=== PATIENT | female | born 1985 | race Caucasian/White ===

== ENCOUNTER 2024-05-09 18:36 | Emergency (ER) | payer MEDICAID, SELFPAY ==
[2024-05-09 18:37] VITALS: BP 170/109; PULSE 76; RESP 18; TEMP 37.1; O2SAT 100; BMI 30.1
--- NOTE | 2024-05-09 18:59 | ED_ITS ---
Discharge Plan Disposition Patient Disposition: Home, Self-Care Condition: Good Prescriptions Prescriptions: New clindamycin HCl 300 mg capsule 300 mg PO TID Qty: 30 0RF Referrals Follow up/Referrals: Provider,Referral, MD [Primary Care Provider] - See instructions Activity Restrictions/Add. Instructions Additional Instructions/Restrictions: Follow-up with dentist as scheduled If symptoms worsen or do not improve return Antibiotics as ordered Take blood pressure medicine as soon as it is available Tylenol or Motrin as needed for pain Clinical Impressions Clinical Impression: Dental caries, Dental abscess Instructions Patient Instructions: Tooth Abscess, DI for Dental Pain Print Language Print Language: Swedish Discharge ED Provider: Ivania Flowers General Adult HPI <Leobardo De Los Santos ([facility]), MANAGER REGISTRATION - Last Filed: 05/09/24 19:14> General Chief complaint: Dental/Oral Stated complaint: tooth pain Time Seen by Provider: 05/09/24 18:53 Mode of Arrival: Ambulatory Source of Information: Patient Limitations: No Limitations Description of Symptoms (Recalled from ER Triage Doc. by RN): pt says she has an abscess tooth and unable to get into the dentist office, pain and swelling to the left side of face. History of Present Illness HPI narrative: 38-year-old female presents for an abscessed tooth on upper left side with facial swelling for 2 days. Patient states she has multiple dental caries and she does have a dentist appointment May 20 but the pain has worsened so she decided to come to the ER. Patient states she also forgot to take her blood pressure pill. Related Data Previous Rx's ?Medication ?Instructions ?Recorded clindamycin HCl 300 mg capsule 300 mg PO TID #30 caps 05/09/24 Allergies Allergy/AdvReac Type Severity Reaction Status Date / Time No Known Allergies Allergy Verified 05/09/24 19:10 PFS <[facility] MANAGER REGISTRATION - Last Filed: 05/09/24 19:14> [facility] Disclaimer: The information contained in this section may have been updated after the patient was seen, as this information can be updated by other users. Social History (Updated 05/09/24 @ 19:14 by Leobardo ThorneZ[facility] MANAGER REGISTRATION) Smoking Status: Current every day smoker alcohol intake: never current occupational status: employed Travel in the last 8 weeks: None <Leobardo De Los Santos ([facility]), MANAGER REGISTRATION - Last Filed: 05/09/24 19:14> ROS Obtained: Yes Systems reviewed as appropriate & no additional complaints except as documented ENT Ears, Nose, Mouth, and Throat: Reports system reviewed and no additional complaints, except as documented, Reports as per HPI, Reports dental pain and Reports facial pain Physical Exam <Leobardo De Los Santos ([facility]), MANAGER REGISTRATION - Last Filed: 05/09/24 19:14> General General appearance: alert and in no apparent distress Expanded Head Exam Head image: 2 1. Swelling Eye Eye exam: Present normal appearance ENT ENT exam: Present mucous membranes moist Expanded ENT Exam Teeth numbered Image: 2 1. Other (Dental caries) 2. Other (Dental caries) 3. Other (Dental caries) 4. Other (Dental caries) 5. Other (Dental caries) 6. Other (Dental caries) 7. Other (Dental caries) 8. Other (Dental caries) 9. Other (Dental caries) 10. Other (Dental caries) 11. Other 12. 13. 14. 15. Respiratory Respiratory exam: Present normal lung sounds bilaterally Cardiovascular Cardiovascular exam: Present regular rate and normal rhythm Neurological Exam Neurological exam: Present alert and oriented X3 Skin Skin exam: Present warm Medical Decision Making <Leobardo Villagomezskyler ([facility]), MANAGER REGISTRATION - Last Filed: 05/09/24 19:14> Medical Records Medical records reviewed: Yes I reviewed the patient's medical records. Screening: Per USPSTF and CDC recommendations, given the prevalence of disease in our region, it is our hospital?s policy to screen for HIV and viral Hepatitis for all patients aged 18 and over and those with ongoing risk factors. Griffin Inquiry Pt receiving controlled substance: No Griffin was queried for this patient: No Vital Signs: 05/09/24 18:37 05/09/24 19:25 Temperature 98.7 F 98.2 F Temperature Source Oral Pulse Rate 70 Pulse Rate [Left Radial] 76 Respiratory Rate 18 20 Blood Pressure 183/109 H Blood Pressure [Right Arm] 170/109 H Blood Pressure Mean [Right Arm] 129 02 Sat by Pulse Oximetry 100 Oxygen Delivery Method Room Air Room Air Orders (Tests/Meds): ED MEDICATIONS Discontinued Medications Generic Name Dose Route Start Last Admin Trade Name Freq PRN Reason Stop Dose Admin Hydrocodone Bitart/Acetaminophen 1 tab 05/09/24 19:00 05/09/24 19:15 Hydrocodone/Apap 5/325 Mg Tablet PO 05/09/24 19:01 1 tab ONCE ONE Administration Ceftriaxone Sodium 1 gm 05/09/24 19:00 05/09/24 19:14 Ceftriaxone 1gm Vial IM 05/09/24 19:01 1 gm ONCE ONE Administration Lidocaine HCl 0 ml 05/09/24 19:00 05/09/24 19:15 Lidocaine 1% 5ml Pf Vial IM 05/09/24 19:01 2.1 ml ONCE ONE Administration Medical Decision Narrative: In summary patient is a 38-year-old female who presents to the emergency department for evaluation of dental pain and facial swelling. Patient states pain is 9 out of 10. Patient is hemodynamically stable upon arrival, afebrile. Facial swelling and multiple dental caries. Differential diagnosis includes abscess, dental caries. Initial inventions include Rocephin injection and [place] 5. Upon repeat evaluation pain is improved. Given this was appropriate discharge at this time will discharge home with clindamycin 303 times a day and instructed to follow-up with PCP and dentist as scheduled <Ivania Flowers MD - Last Filed: 05/09/24 20:04> Vital Signs: 05/09/24 18:37 05/09/24 19:25 Temperature 98.7 F 98.2 F Temperature Source Oral Pulse Rate 70 Pulse Rate [Left Radial] 76 Respiratory Rate 18 20 Blood Pressure 183/109 H Blood Pressure [Right Arm] 170/109 H Blood Pressure Mean [Right Arm] 129 02 Sat by Pulse Oximetry 100 Oxygen Delivery Method Room Air Room Air Orders (Tests/Meds): ED MEDICATIONS Discontinued Medications Generic Name Dose Route Start Last Admin Trade Name Freq PRN Reason Stop Dose Admin Hydrocodone Bitart/Acetaminophen 1 tab 05/09/24 19:00 05/09/24 19:15 Hydrocodone/Apap 5/325 Mg Tablet PO 05/09/24 19:01 1 tab ONCE ONE Administration Ceftriaxone Sodium 1 gm 05/09/24 19:00 05/09/24 19:14 Ceftriaxone 1gm Vial IM 05/09/24 19:01 1 gm ONCE ONE Administration Lidocaine HCl 0 ml 05/09/24 19:00 05/09/24 19:15 Lidocaine 1% 5ml Pf Vial IM 05/09/24 19:01 2.1 ml ONCE ONE Administration Medical Decision Narrative: In summary patient is a 38-year-old female who presents to the emergency department for evaluation of dental pain and facial swelling. Patient states pain is 9 out of 10. Patient is hemodynamically stable upon arrival, afebrile. Facial swelling and multiple dental caries. Differential diagnosis includes abscess, dental caries. Initial inventions include Rocephin injection and [place] 5. Upon repeat evaluation pain is improved. Given this was appropriate discharge at this time will discharge home with clindamycin 303 times a day and instructed to follow-up with PCP and dentist as scheduled I was consulted by the [facility], and we discussed the complexity of the problems being addressed. I approved the treatment and management plan for this patient's care in the Emergency Department, thus performing a substantive portion of the medical decision making. Ivania Flowers MD Critical Care <Leobardo De Los Santos ([facility]), MANAGER REGISTRATION - Last Filed: 05/09/24 19:14> Critical Care Time Critical Care Time: No
[2024-05-09] MEDS: cefTRIAXone 1GM VIAL 1 GM IM (19:14)
[2024-05-09] MEDS: HYDROCODONE/APAP 5/325 MG TABLET 1 TAB PO (19:15)
[2024-05-09] MEDS: LIDOCAINE 1% 5ML PF VIAL IM (19:15)
[2024-05-09 19:25] VITALS: BP 183/109; PULSE 70; RESP 20; TEMP 36.8; O2SAT 100
== END 2024-05-09 19:30 | disposition home or self-care (01) ==
PROVIDERS: Emergency Provider Emergency Medicine
DX: K04.7 Periapical abscess without sinus (principal); K02.9 Dental caries, unspecified; K08.89 Other specified disorders of teeth and supporting structures; R22.0 Localized swelling, mass and lump, head
CPT/HCPCS: 96372; 99282; J0696

== ENCOUNTER 2024-07-02 13:17 | Emergency (ER) | payer SELFPAY ==
[2024-07-02 13:18] VITALS: BP 170/104; PULSE 75; RESP 20; TEMP 36.9; O2SAT 98; BMI 30.1
--- NOTE | 2024-07-02 13:58 | ED_ITS ---
<Statement entered by Janny Greenberg DO - 07/02/24 16:08> I was consulted by the [facility], and we discussed the complexity of the problems being addressed. I approved the treatment and management plan for this patient's care in the emergency department, thus performing a substantive portion of the medical decision making. Janny Greenberg DO Discharge Plan Disposition Patient Disposition: Home, Self-Care Condition: Good Prescriptions Prescriptions: New meclizine 25 mg tablet 25 mg PO DAILY Qty: 30 0RF hydrochlorothiazide 25 mg tablet 25 mg PO DAILY Qty: 60 0RF No Action clindamycin HCl 300 mg capsule 300 mg PO TID Qty: 30 0RF Referrals Follow up/Referrals: Provider,Referral, MD [Primary Care Provider] - See instructions Activity Restrictions/Add. Instructions Additional Instructions/Restrictions: Please take meclizine p.o. as needed for dizziness, please take your blood pressure medicine as prescribed, follow-up with primary care provider return to the emergency department any worsening signs or symptoms. Clinical Impressions Clinical Impression: Dizziness, Nausea Instructions Patient Instructions: Vertigo Print Language Print Language: Korean Discharge ED Provider: Janny Greenberg General Adult HPI <ZULY Espinosa - Last Filed: 07/02/24 15:15> General Chief complaint: Dizziness Stated complaint: dizzy, nausea Time Seen by Provider: 07/02/24 13:54 Mode of Arrival: Ambulatory Source of Information: Patient Limitations: No Limitations Description of Symptoms (Recalled from ER Triage Doc. by RN): pt states she is dizzy and nausea for 3 days and has been without bp meds for two weeks due to insurance issues History of Present Illness HPI narrative: 39-year-old female presents emergency department for dizziness and nausea with 1 episode of vomiting yesterday this been going on for 3 days she has had similar episode in the past, that resolved on its own, patient dates the dizziness waxes wanes, no position makes it better or worse. Patient denies any fever chills chest pain shortness of breath abdominal pain urinary type symptomatology, no neck pain, headache, no upper or lower extremity weakness, no numbness or tingling, no constipation, she did have diarrhea for the last couple of days, endorses cough and congestion, no recent sick contacts, no real fever or chills. He is a current everyday smoker she denies any alcohol or drug use. She has other past medical history consistent with hypertension, GERD and bipolar 1 disorder. She has been without her blood pressure medicines for over 2 weeks due to insurance issues , she is unsure of what her blood pressure medication that she is prescribed is. Initial triage vitals noted for blood pressure at 170 systolic otherwise grossly unremarkable Onset (ago): day(s) Related Data Previous Rx's ?Medication ?Instructions ?Recorded clindamycin HCl 300 mg capsule 300 mg PO TID #30 caps 05/09/24 hydrochlorothiazide 25 mg tablet 25 mg PO DAILY #60 tabs 07/02/24 meclizine 25 mg tablet 25 mg PO DAILY #30 tabs 07/02/24 Allergies Allergy/AdvReac Type Severity Reaction Status Date / Time No Known Allergies Allergy Verified 05/09/24 19:10 [facility] <ZULY Espinosa - Last Filed: 07/02/24 15:15> [facility] Disclaimer: The information contained in this section may have been updated after the patient was seen, as this information can be updated by other users. Social History (Updated 05/09/24 @ 19:14 by Leobardo De Los Santos ([facility]), INSPECTOR RECEIVING) Smoking Status: Never smoker alcohol intake: never current occupational status: employed Travel in the last 8 weeks: None Have you lived/traveled outside [place] in past 30 days?: No Contact w/someone who lives/traveled outside US past 30 days?: No Exposure to someone with infectious disease in past 14 days?: No Do you have a fever (greater than 100.4 F or 38 C)?: No Have you tested positive for COVID-19: No Exposed to someone with COVID-19 in past 14 days?: No Do you have a sore throat?: No Do you have a cough?: No Do you have any weakness?: No Do you have any diarrhea?: No Are you experiencing any unusual bleeding?: No Do you have any muscle aches/pain?: No Do you have any abdominal pain?: No Are you experiencing loss of taste or smell?: No <ZULY Espinosa - Last Filed: 07/02/24 15:15> ROS Obtained: Yes All systems reviewed & no additional complaints except as documented Physical Exam <ZULY Espinosa - Last Filed: 07/02/24 15:15> General General appearance: alert and in no apparent distress Head Head exam: atraumatic, normocephalic and other (No vertical or horizontal nystagmus noted negative [id number] test, no visual disturbance, visual acuity intact) Eye Eye exam: Present PERRL and EOMI ENT ENT exam: Present mucous membranes moist Neck Neck exam: Present normal inspection Chest Chest inspection: Present normal inspection and symmetric chest wall rise Respiratory Respiratory exam: Present normal lung sounds bilaterally; Absent respiratory distress, wheezes, stridor or accessory muscle use Cardiovascular Cardiovascular exam: Present regular rate and normal rhythm Abdominal Exam Abdominal exam: Present soft; Absent tenderness, guarding, rebound or rigidity Extremities Exam Extremities exam: Present normal inspection Neurological Exam Neurological exam: Present alert, oriented X3 and other (Patient has 5 out of 5 strength in the bilateral lower and upper extremities, no gross sensation deficit, no dysmetria, negative Romberg sign no ataxia no limb drift in the bilateral upper and lower extremity) Psychiatric Psychiatric exam: Present normal affect Skin Skin exam: Present warm and dry Medical Decision Making <ZULY Espionsa - Last Filed: 07/02/24 15:15> Medical Records Medical records reviewed: Yes I reviewed the patient's medical records. Screening: Per USPSTF and CDC recommendations, given the prevalence of disease in our region, it is our hospital?s policy to screen for HIV and viral Hepatitis for all patients aged 18 and over and those with ongoing risk factors. Griffin Inquiry Pt receiving controlled substance: No Griffin was queried for this patient: No Vital Signs: 07/02/24 13:18 Temperature 98.5 F Temperature Source Oral Pulse Rate [Left Radial] 75 Respiratory Rate 20 Blood Pressure [Right Arm] 170/104 H Blood Pressure Mean [Right Arm] 126 02 Sat by Pulse Oximetry 98 Oxygen Delivery Method Room Air Lab Data Lab results reviewed: Yes I reviewed the patient's lab results. Lab Results 07/02/24 14:10: Urine Color Yellow, Urine Appearance Slightly cloudy, Urine pH 7.0, Ur Specific [place] 1.010, Urine Protein Negative, Urine Glucose (UA) Negative, Urine Ketones Negative, Urine Blood Negative, Urine Nitrate Negative, Urine Bilirubin Negative, Urine Urobilinogen 0.2, Ur Leukocyte Esterase Negative, SARS-CoV-2 (PCR) Not detected, Influenza A Untype (PCR) Not detected, Influenza Type B (PCR) Not detected 07/02/24 14:44: WBC 9.6, RBC 4.25, Hgb 11.6 L, Hct 35.6 L, MCV 83.8, MCH 27.3, MCHC 32.6, RDW 14.8, Plt Count 304, MPV 9.3, Neut % (Auto) 60.2, Lymph % (Auto) 30.1, [place] % (Auto) 8.0, Eos % (Auto) 0.9, Baso % (Auto) 0.6, Neut # (Auto) 5.8, Lymph # (Auto) 2.9, [place] # (Auto) 0.8, Eos # (Auto) 0.1, Baso # (Auto) 0.1, S odium 134 L, Potassium 3.5, Chloride 107, Carbon Dioxide 24, Anion Gap 6.5, BUN 12, Creatinine 0.80, Estimated Creat Clear 117, Estimated GFR 81, Est GFR ( Amer) 98, Glucose 91, Calcium 8.6, Magnesium 1.8, Total Bilirubin 0.5, AST 31, ALT 21, Alkaline Phosphatase 88, Troponin I < 0.01, Total Protein 7.0, Albumin 4.1, Globulin 2.9, Albumin/Globulin Ratio 1.4, Lipase 162 07/02/24 14:44 07/02/24 14:44 Orders (Tests/Meds): ED MEDICATIONS Discontinued Medications Generic Name Dose Route Start Last Admin Trade Name Freq PRN Reason Stop Dose Admin Meclizine HCl 25 mg 07/02/24 13:57 07/02/24 14:13 Meclizine 25mg Tablet PO 07/02/24 13:58 25 mg ONCE ONE Administration ORDERS Category Date Time Status Complete Blood Count Auto Diff Stat Lab 07/02/24 14:44 Completed Comprehensive Metabolic Panel Stat Lab 07/02/24 14:44 Completed Lipase Stat Lab 07/02/24 14:44 Completed Magnesium Stat Lab 07/02/24 14:44 Completed Rapid PCR Covid and Flu A/B Stat Lab 07/02/24 14:10 Completed Troponin I Q3H Lab 07/02/24 17:00 Ordered Troponin I Q3H Lab 07/02/24 20:00 Ordered Troponin I Stat Lab 07/02/24 14:44 Completed Urinalysis and Microscopic Stat Lab 07/02/24 14:10 Results Urine , HCG Qual. Stat Lab 07/02/24 13:56 Ordered Medical Decision Narrative: 39-year-old female presents emerged part with dizziness and nausea, for 3 days, differential diagnose include but not limited to, peripheral vertigo central vertigo, cardiac arrhythmia, electrolyte disturbance, hypertensive urgency, hypertensive emergency, acute URI. I discussed patient case with attending physician Obtain basic laboratory studies magnesium level lipase level rapid PCR for COVID and flu, troponin urinalysis EKG. Will give 25 mg p.o. meclizine for dizziness. Urinalysis unremarkable. COVID-19 and influenza AMB are unremarkable CBC is unremarkable. CMP is notable for minimal hyponatremia 134 Troponin is negative. Reexamination of the patient at 3:10 PM, patient is feeling better and dizziness is improved with meclizine, will send patient p.o. meclizine to her pharmacy, patient will follow with PCP as directed, strict ED return precaution given, patient voiced understand agree with current treatment plan/discharge plan. Most likely vertigo in nature the patient symptomatology and improvement with meclizine, will also prescribe patient 25 mg HCTZ p.o. which is her at home blood pressure medication. Patient voiced understanding with current treatment plan/discharge plan. <Janny Greenberg, DO - Last Filed: 07/02/24 14:30> Vital Signs: 07/02/24 13:18 Temperature 98.5 F Temperature Source Oral Pulse Rate [Left Radial] 75 Respiratory Rate 20 Blood Pressure [Right Arm] 170/104 H Blood Pressure Mean [Right Arm] 126 02 Sat by Pulse Oximetry 98 Oxygen Delivery Method Room Air Lab Data Lab Results 07/02/24 14:10: Urine Color Yellow, Urine Appearance Slightly cloudy, Urine pH 7.0, Ur Specific [place] 1.010, Urine Protein Negative, Urine Glucose (UA) Negative, Urine Ketones Negative, Urine Blood Negative, Urine Nitrate Negative, Urine Bilirubin Negative, Urine Urobilinogen 0.2, Ur Leukocyte Esterase Negative, SARS-CoV-2 (PCR) Not detected, Influenza A Untype (PCR) Not detected, Influenza Type B (PCR) Not detected 07/02/24 14:44: WBC 9.6, RBC 4.25, Hgb 11.6 L, Hct 35.6 L, MCV 83.8, MCH 27.3, MCHC 32.6, RDW 14.8, Plt Count 304, MPV 9.3, Neut % (Auto) 60.2, Lymph % (Auto) 30.1, [place] % (Auto) 8.0, Eos % (Auto) 0.9, Baso % (Auto) 0.6, Neut # (Auto) 5.8, Lymph # (Auto) 2.9, [place] # (Auto) 0.8, Eos # (Auto) 0.1, Baso # (Auto) 0.1, S odium 134 L, Potassium 3.5, Chloride 107, Carbon Dioxide 24, Anion Gap 6.5, BUN 12, Creatinine 0.80, Estimated Creat Clear 117, Estimated GFR 81, Est GFR ( Amer) 98, Glucose 91, Calcium 8.6, Magnesium 1.8, Total Bilirubin 0.5, AST 31, ALT 21, Alkaline Phosphatase 88, Troponin I < 0.01, Total Protein 7.0, Albumin 4.1, Globulin 2.9, Albumin/Globulin Ratio 1.4, Lipase 162 Orders (Tests/Meds): ED MEDICATIONS Discontinued Medications Generic Name Dose Route Start Last Admin Trade Name Freq PRN Reason Stop Dose Admin Meclizine HCl 25 mg 07/02/24 13:57 07/02/24 14:13 Meclizine 25mg Tablet PO 07/02/24 13:58 25 mg ONCE ONE Administration ORDERS Category Date Time Status Complete Blood Count Auto Diff Stat Lab 07/02/24 14:44 Completed Comprehensive Metabolic Panel Stat Lab 07/02/24 14:44 Completed Lipase Stat Lab 07/02/24 14:44 Completed Magnesium Stat Lab 07/02/24 14:44 Completed Rapid PCR Covid and Flu A/B Stat Lab 07/02/24 14:10 Completed Troponin I Q3H Lab 07/02/24 17:00 Ordered Troponin I Q3H Lab 07/02/24 20:00 Ordered Troponin I Stat Lab 07/02/24 14:44 Completed Urinalysis and Microscopic Stat Lab 07/02/24 14:10 Results Urine , HCG Qual. Stat Lab 07/02/24 13:56 Ordered ECG Data Tracing #1: I reviewed this ECG and interpreted as documented below: Normal sinus rhythm with a ventricular rate of [address] changes concerning for ischemia. Normal intervals. ECG initial impression date: 07/02/24 ECG initial impression time: 14:29 Critical Care <ZULY Espinosa - Last Filed: 07/02/24 15:15> Critical Care Time Critical Care Time: No
--- NOTE | 2024-07-02 14:08 | ECG_ITS ---
APPROVED REPORT Exam: Resting ECG HR:73 bpm ECG Measurements Heart Rate 73 AXES DE 131 P 49 QRSd 88 QRS 39 QT 393 T 54 QTc 419 Conclusion SINUS RHYTHM NONSPECIFIC T-WAVE ABNORMALITY Electronically signed by : LONNY ALANIZ, 07/02/2024 16:47:27
[2024-07-02] MEDS: MECLIZINE 25MG TABLET 25 MG PO (14:13)
[2024-07-02 14:15] LABS: Coronavirus 19, PCR Not Detected (NotDetected); Influenza A, PCR Not Detected (NotDetected); Influenza B, PCR Not Detected (NotDetected)
[2024-07-02 14:17] LABS: Microscopic, Urine URINE MICROSCOPIC (MICROSCOPIC)
[2024-07-02 14:26] LABS: Bilirubin,Urine Negative (Negative); Blood, Urine Negative (Negative); Color,Urine YELLOW (Yellow); Glucose,Urine (UA) Negative (Negative); Ketones,Urine Negative (Negative); Leukocyte Esterase,Urine Negative (Negative); Nitrate,Urine Negative (Negative); Protein,Urine Negative (Negative); Urobilinogen,Urine 0.2 EU/dl (0.2)
[2024-07-02 14:27] LABS: Appearance,Urine Slightly Cloudy (Clear)
[2024-07-02 14:54] LABS: Albumin Level 4.1 g/dl (3.5-5.0); Chloride 107 mmol/L (98-107); Hematocrit 35.6 % (37.0-47.0); Hemoglobin 11.6 g/dL (12.2-16.2); Mean Corpuscular Volume 83.8 fl (81-99); Red Blood Count 4.25 M/mm3 (4.20-5.40); Sodium 134 mmol/L (136-145); White Blood Count 9.6 K/mm3 (4.8-10.8)
[2024-07-02 14:55] LABS: Basophils # 0.1 K/mm3 (0-0.2); Basophils % 0.6 % (0.1-2.0); Eosinophils # 0.1 K/mm3 (0.0-0.4); Eosinophils % 0.9 % (0.1-12.0); Lymphocytes # 2.9 K/mm3 (0.7-4.5); Lymphocytes % 30.1 % (10-50); Mean Corpuscular HGB Conc 32.6 g/dL (31.8-35.4); Mean Corpuscular Hemoglobin 27.3 pg (27.0-31.2); Mean Platelet Volume 9.3 fl (7.4-10.4); Monocytes # 0.8 K/mm3 (0.1-1.0); Neutrophils # 5.8 K/mm3 (1.8-7.8); Neutrophils % 60.2 % (37.0-80.0); Platelet Count 304 K/mm3 (142-424); Potassium 3.5 mmoL/L (3.5-5.1); Red Cell Distribution Width 14.8 % (11.5-17.5)
[2024-07-02 14:57] LABS: Alanine Aminotransferase 21 U/L (12-78); Albumin/Globulin Ratio 1.4 (1.1-1.8); Alkaline Phosphatase 88 U/L (38-126); Anion Gap 6.5 mEq/L (5-15); Aspartate Amino Transferase 31 U/L (14-36); Bilirubin,Total 0.5 mg/dl (0.2-1.3); Blood Urea Nitrogen 12 mg/dl (7-17); Calcium 8.6 mg/dl (8.4-10.2); Carbon Dioxide 24 mmol/L (22.0-30.0); Creatinine Clearance Estimated 117 mL/min (50-200); Estimated Glomerular Filt Rate 81 ml/min (>60); GFR (African American) 98 ML/MIN (>60); Globulin 2.9 g/dL (1.3-3.2); Glucose 91 mg/dl (74-100); Lipase 162 U/L (23-300)
[2024-07-02 14:58] LABS: Magnesium 1.8 mg/dl (1.6-2.3)
[2024-07-02 15:10] LABS: Troponin I < 0.01 ng/ml (0.00-0.034)
[2024-07-02 15:17] LABS: Bacteria,Urine Trace /lpf; WBC,Urine Occasional #/hpf (0-3)
[2024-07-02 15:29] VITALS: BP 160/80; PULSE 80; RESP 20; TEMP 36.8; O2SAT 99
[2024-07-02 16:19] LABS: Urine Pregnancy, HCG Qual. Negative (Negative)
== END 2024-07-02 15:32 | disposition home or self-care (01) ==
PROVIDERS: Physician Assistant; Emergency Provider Emergency Medicine
DX: R42 Dizziness and giddiness (principal); R11.0 Nausea
CPT/HCPCS: 80053; 81001; 81025; 83690; 83735; 84484; 85025; 87636; 93005; 99283

== ENCOUNTER 2024-08-19 12:12 | Emergency (ER) | payer SELFPAY ==
[2024-08-19 13:05] VITALS: BP 162/99; PULSE 69; RESP 19; TEMP 36.9; O2SAT 100; BMI 31.6
[2024-08-19 13:22] LABS: UTC Influenza A Antigen Positive (Negative)
--- NOTE | 2024-08-19 13:22 | ED_ITS ---
Discharge Plan Disposition Patient Disposition: Home, Self-Care Condition: Good Prescriptions Prescriptions: No Action meclizine 25 mg tablet 25 mg PO DAILY Qty: 30 0RF hydrochlorothiazide 25 mg tablet 25 mg PO DAILY Qty: 60 0RF clindamycin HCl 300 mg capsule 300 mg PO TID Qty: 30 0RF Referrals Follow up/Referrals: Provider,Referral, MD [Primary Care Provider] - See instructions Activity Restrictions/Add. Instructions Additional Instructions/Restrictions: * Lots of rest * Increase Fluids water, Gatorade, powerade, pedialyte,if /toddler/child * Alternate Tylenol and / or ibuprofen as discussed for fever, aches, chills Follow up IMMEDIATELY with your family doctor for new or worsening Symptoms OR no noticeable improvement over the next 48-72 hours, 911 for difficulty or breathing * You or your child area contagious until no fever, aches, chills for 24 hours with medication for symptoms * Help Prevent the spread of influenza: * ?Wash your hands often. Use soap and water. Wash your hands after you use the bathroom, change a child's diapers, or sneeze. Wash your hands before you prepare or eat food. Use gel hand cleanser that has 60% alcohol, when soap and water are not available. Do not touch your eyes, nose, or mouth unless you have washed your hands first. * Cover your mouth when you sneeze or cough. Cough into a tissue or the bend of your arm. If you use a tissue, throw it away immediately and wash your hands. * Clean shared items with a germ-killing acid cleaner. Clean table surfaces, doorknobs, and light switches. Do not share towels, silverware, and dishes with people who are sick. Wash bed sheets, towels, silverware, and dishes with soap and water. * Wear a mask over your mouth and nose if you are sick. The face mask may help protect others from becoming infected with the flu. Wear the mask when in common areas of your home or if you seek care with a healthcare provider. * Stay away from others if you are sick. Stay at home until 24 hours after your fever and symptoms are gone. Clinical Impressions Clinical Impression: Influenza Stand Alone Forms Stand Alone Forms: Work/School Release Instructions Patient Instructions: DI for Influenza -- Adult, Influenza Print Language Print Language: Ukrainian Discharge ED Provider: Liseth Mckeon [facility] [place] General Stated complaint: pelaez ba fever 102 nausea flu exposure Mode of Arrival: Ambulatory Source of Information: Patient Limitations: No Limitations Time Seen by Provider: 08/19/24 13:22 Description of Symptoms (Recalled from Triage Doc. by RN): PATIETN C/O FEVER, BODY ACHES, AND HEADACHE SINCE YESTERDAY. PATIENT REPORTS EXPOSURE TO FLU HEENT Symptoms (Recalled from RN notes): Yes Resp Symptoms (Recalled from RN notes): No Skin Symptoms (Recalled from RN notes): No MS Symptoms (Recalled from RN notes): No Functional Status (Recalled from RN notes): WNL History of Present Illness Provider Complaint: Pt states that she was exposed to the flu and now she is having symptoms States that she started yesterday with fever, chills, body aches and headache and today when she wasnt feeling any better she came in to get checked Related Data Previous Rx's ?Medication ?Instructions ?Recorded clindamycin HCl 300 mg capsule 300 mg PO TID #30 caps 05/09/24 hydrochlorothiazide 25 mg tablet 25 mg PO DAILY #60 tabs 07/02/24 meclizine 25 mg tablet 25 mg PO DAILY #30 tabs 07/02/24 Allergies Allergy/AdvReac Type Severity Reaction Status Date / Time No Known Allergies Allergy Verified 05/09/24 19:10 Worker's Comp Is this a Worker's Comp case?: No [facility] Disclaimer: The information contained in this section may have been updated after the alexa yancey was seen, as this information can be updated by other users. Medical History (Updated 08/19/24 @ 13:30 by Liseth Mckeon APRN) Depression Anxiety Hypertension Surgical History (Updated 08/19/24 @ 13:15 by Citlaly Pacheco RN) History of tubal ligation History of section Social History (Updated 05/09/24 @ 19:14 by Leobardo De Los Santos ([facility]), TROY) Smoking Status: Never smoker alcohol intake: never current occupational status: employed Travel in the last 8 weeks: None Have you lived/traveled outside US in past 30 days?: No Contact w/someone who lives/traveled outside US past 30 days?: No Exposure to someone with infectious disease in past 14 days?: No Do you have a fever (greater than 100.4 F or 38 C)?: No Have you tested positive for COVID-19: No Exposed to someone with COVID-19 in past 14 days?: No Do you have a sore throat?: No Do you have a cough?: Yes Do you have any weakness?: No Do you have any diarrhea?: No Are you experiencing any unusual bleeding?: No Do you have any muscle aches/pain?: No Do you have any abdominal pain?: No Are you experiencing loss of taste or smell?: No ROS Obtained: Yes All systems reviewed & no additional complaints except as documented and Yes Systems reviewed as appropriate & no additional complaints except as documented Constitutional Constitutional: Reports system reviewed and no additional complaints, except as documented, Reports as per HPI, Reports body ache, Reports chills, Reports fever(s) and Reports headache(s) ENT Ears, Nose, Mouth, and Throat: Reports system reviewed and no additional complaints, except as documented, Reports as per HPI, Reports headache(s), Reports nasal congestion and Reports nasal discharge Cardiovascular Cardiovascular: Reports system reviewed and no additional complaints, except as documented and Reports as per HPI Respiratory Respiratory: Reports system reviewed and no additional complaints, except as documented and Reports as per HPI Gastrointestinal Gastrointestingal: Reports system reviewed and no additional complaints, except as documented and as per HPI Neurologic Neurologic: Reports headache(s) Physical Exam General General appearance: alert and in no apparent distress ENT ENT exam: Present normal exam, normal oropharynx, mucous membranes moist and TM's normal bilaterally Respiratory Respiratory exam: Present normal lung sounds bilaterally; Absent respiratory distress or wheezes Cardiovascular Cardiovascular exam: Present regular rate, normal rhythm and normal heart sounds Abdominal Exam Abdominal exam: Present soft and normal bowel sounds; Absent distention or tenderness Neurological Exam Neurological exam: Present alert, oriented X3 and normal gait Medical Decision Making Medical Records Screening: Per USPSTF and CDC recommendations, given the prevalence of disease in our region, it is our hospital?s policy to screen for HIV and viral Hepatitis for all patients aged 18 and over and those with ongoing risk factors. Griffin Inquiry Pt receiving controlled substance: No Griffin was queried for this patient: No Vital Signs: 08/19/24 13:05 Temperature 98.5 F Temperature Source Oral Pulse Rate [Left Brachial] 69 Respiratory Rate 19 Blood Pressure [Left Arm] 162/99 H Blood Pressure Mean [Left Arm] 120 Blood Pressure Source [Left Arm] Automatic Cuff Blood Pressure Position [Left Arm] Sitting 02 Sat by Pulse Oximetry 100 Oxygen Delivery Method Room Air Lab Data Lab results reviewed: Yes I reviewed the patient's lab results.
[2024-08-19 13:23] LABS: UTC Influenza B Antigen Negative (Negative)
[2024-08-19 13:31] VITALS: BP 162/99; PULSE 69; RESP 19; TEMP 36.9; O2SAT 100
== END 2024-08-19 13:33 | disposition home or self-care (01) ==
PROVIDERS: Emergency Provider Nurse Practitioner
DX: J11.1 Influenza due to unidentified influenza virus with other respiratory manifestations (principal)
CPT/HCPCS: 87804; 99213; G0381

== ENCOUNTER 2025-02-23 14:57 | Outpatient (CLI) | payer OTHER, MEDICAID, SELFPAY ==
--- OUTSIDE RECORDS SUMMARY | 2024-03-31 10:00 | XMS_ITS ---
Author Organization [facility] Address [address] [place] [address] Care Team Providers Care Material Attendant Name Role Phone Aracelis dAan Unavailable [phone] Cynthia Neal Unavailable [phone] REASON FOR VISIT Thinks she has BV Medications Medication SIG (Take, Route, Frequency, Duration) Notes Start Date End Date Status Acyclovir 400 MG Tablet 1 tablet Orally Twice a day; Duration: 90 days 07/24/2023 Active Doxycycline Hyclate 100 MG Capsule 1 capsule Orally twice a day; Duration: 7 days 07/29/2023 Active Acyclovir 400 MG Tablet 1 tablet Orally daily for acute flare; Duration: 10 day(s) Active metroNIDAZOLE 500 MG Tablet 1 tablet Orally two times a day; Duration: 7 days 07/26/2023 Active metroNIDAZOLE 500 MG Tablet 1 tablet Orally two times a day; Duration: 10 day(s) 11/07/2021 Not-Taking/P RN Encounters Encounter Location Date Provider Diagnosis [facility] [address] [place] [address] 03/31/2024 Cynthia Neal Plan Of Treatment No Information Progress Notes * Lalitha ONOFRE DDOB:1984 (39 yo F)Acc No.[id number]:03/31/2024 Progress Note Patient: Raisa poojajazminLalitha Provider: Suly Neal MD :1985 A ge:38 Y S ex:Female Date:03/31/2024 Address:[address] [place], [place] [id number] Subjective: * Chief Complaints: * Cristobal sorenson she has BV * Medications: T akingAcyclovir 400 MG Tablet 1 tablet Orally daily for acute flare Acyclovir 400 MG Tablet 1 tablet Orally Twice a day Doxycycline Hyclate 100 MG Capsule 1 capsule Orally twice a day metroNIDAZOLE 500 MG Tablet 1 tablet Orally two times a day Taking Acyclovir 400 MG Tablet 1 tablet Orally daily for acute flare Taking Acyclovir 400 MG Tablet 1 tablet Orally Twice a day Taking Doxycycline Hyclate 100 MG Capsule 1 capsule Orally twice a day Taking metroNIDAZOLE 500 MG Tablet 1 tablet Orally two times a day Not-Taking/PRNmetroNIDAZOLE 500 MG Tablet 1 tablet Orally two times a day Medication List reviewed and reconciled with the patientNot-Taking/PRN metroNIDAZOLE 500 MG Tablet 1 tablet Orally two times a day Medication List reviewed and reconciled with the patient * Electronic signature of Jacqueline Neal MD on 02/24/2025 at 10:58 AM EDT Sign off status: Pending Visit Status: R /S (Rescheduled) * Provider: Suly Neal MD Date: 0 03/31/2024 Generated for Torito fontaine/Neha/Breezysmareli on: 0 02/24/2025 10:58 AM EDT
--- OUTSIDE RECORDS SUMMARY | 2025-01-22 15:45 | XMS_ITS | Encounter Summary ---
[facility] Address [address] [place] [address] Care Team Providers Care Ethylene Plant Helper Name Role Phone Armando Haynes FIREBRICK LAYER Primary Care Provider + Reason for Visit * Reason Comments Follow-up HTN Encounter Details Date Type Department Care Team (Late st Contact Info) Description 01/22/2025 3:45 PM EDT Office Visit [facility] [address] [facility] [address] [place] [address] Armando Haynes, FIREBRICK LAYER [address] [facility] [address] [place] [address] Essential hypertension (Primary Dx); Bipolar 1 disorder; Gastroesophageal reflux disease without esophagitis; Class 1 obesity due to excess calories with serious comorbidity and body mass index (BMI) of 30.0 to 30.9 in adult; Other iron deficiency anemia Social History Tobacco Use Types Packs/Day Years Used Date Smoking Tobacco: Every Day Cigarettes 1 15 Smokeless Tobacco: Never Alcohol Use Standard Drinks/Week Comments Yes 0 (1 standard drink = 0.6 oz pur e alcohol) SOCIAL [place] Depression Scale Answer Date Recorded Retired [place] Depression Score 8 07/25/2018 Retired EPD Scale: Thought of Harming Self Unrec ognized value 07/25/2018 PHQ-2 Answer Date Recorded Patient Health Questionnaire-2 Score 0 12/22/2024 Comments No Sex and Gender Information Value Date Recorded Sex Assigned at Not on file Legal Sex Female 1:42 PM EDT Gender Identity Not on file Sexual Orientation Not on file documented as of this encounter Last Filed Vital Signs Vital Sign Reading Time Taken Comments Blood Pressure 120/72 01/22/2025 3:38 PM EDT Pulse 77 01/22/2025 3:38 PM EDT Temperature 36.1 C (97 F) 01/22/2025 3:38 PM EDT Respiratory Rate - - Oxygen Saturation - - Inhaled Oxygen Concentration - - Weight 76.9 kg (169 lb 9.6 oz) 01/22/2025 3:38 P M EDT Height 160 cm (5' 3 ) 01/22/2025 3:38 PM EDT Body Mass Index 30.04 01/22/2025 3:38 PM EDT documented in this encounter Progress Notes * Armando Haynes, FIREBRICK LAYER - 01/22/2025 3:45 PM EDT Chief Complaint Patient presents with Follow-up HTN HPI Lalitha Onofre is a 39 y.o. female presents for follow-up on HTN, Bipolar, and GERD. Her BP is much improved today. She states one day she forgot to take her Losartan before work and she felt bad,and another day she thinks she had a ruptured ovarian cyst and her BP was high because she was in pain. Other than that she states her readings have been good. She is requesting Wegovy. She states that her insurance covers it. She wants to lose about 30 lbs. She feels the Abilify if working well for her. She wants to stay at the 15mg dose. The following portions of the patient's history were reviewed and updated as appropriate: allergies, current medications, past family history, past medical history, past social history, past surgicalhistory, and problem list. Subjective Review of Systems Constitutional: Positive for unexpected weight gain. Negative for activity change, appetite change and fatigue. HENT: Negative for congestion. Respiratory: Negative for cough and shortness of breath. Cardiovascular: Negative for chest pain and leg swelling. Gastrointestinal: Negative for abdominal pain. Neurological: Negative for dizziness, weakness and confusion. Psychiatric/Behavioral: Negative for behavioral problems and decreased concentration. Objective Visit Vitals BP 120/72 (BP Location: Left arm, Patient Position: Sitting) Pulse 77 Temp 97 ??F (36.1 ??C) Ht 160 cm (63 ) Wt 76.9 kg (169 lb 9.6 oz) BMI 30.04 kg/m?? Physical Exam Vitals and nursing note reviewed. HENT: Head: Normocephalic. Eyes: Pupils: Pupils are equal, round, and reactive to light. Pulmonary: Effort: Pulmonary effort is normal. No respiratory distress. Skin: General: Skin is warm and dry. Capillary Refill: Capillary refill takes less than 2 seconds. Neurological: General: No focal deficit present. Mental Status: She is alert and oriented to person, place, and time. Gait: Gait is intact. Psychiatric: Attention and Perception: Attention normal. Mood and Affect: Mood normal. Behavior: Behavior normal. Comments: Smiling and chatty Procedures Assessment and Plan Diagnoses and all orders for this visit: 1. Essential hypertension (Primary) 2. Bipolar 1 disorder 3. Gastroesophageal reflux disease without esophagitis 4. Class 1 obesity due to excess calories with serious comorbidity and body mass index (BMI) of 30.0 to 30.9 in adult - Semaglutide-Weight Management (Wegovy) 0.25 MG/0.5ML solution auto-injector; Inject 0.5 mL under the skin into the appropriate area as directed Every 7 (Seven) Days. Dispense: 2 mL; Refill: 2 5. Other iron deficiency anemia BP much improved on Losartan 25mg, will cont Abilify working well for bipolar, will cont She denies having any heartburn with the Pepcid Will start Wegovy if PA gets approved, discussed side effects of nausea/heartburn/constipation Discussed with pt she only needed about 15 lb wt loss. I did not feel that her getting to 130 lbs was realistic. Cont iron supplement Return in about 3 months (around 04/24/2025) for HTN, Bipolar, wt loss. Armando Haynes APRN documented in this encounter Plan of Treatment Not on file documented as of this encounter Visit Diagnoses Diagnosis Essential hypertension- Primary Unspecified essential hypertension Bipolar 1 disorder Gastroesophageal reflux disease without esophagitis Esophageal reflux Class 1 obesity due to excess calories with serious comorbidity and body mass index (BMI) of 30.0 to 30.9 in adult Other iron deficiency anemia documented in this encounter Care Teams Ethylene Plant Helper Relationship Specialty Start Date End Date Armando Haynes APRN [address] [facility] [address] [place] [address] PCP - General Family Medicine 04/26/21 documented as of this encounter
--- OUTSIDE RECORDS SUMMARY | 2025-02-24 10:58 | XMS_ITS | Encounter Summary ---
[facility] Address [address] [place] [address] Care Team Providers Care Automotive Technician Instructor Name Role Phone Armando Haynes APRN Primary Care Provider + Encounter Details Date Type Department Care Team (Latest Contact Info) Description 01/22/2025 Travel Social History Tobacco Use Types Packs/Day Years Used Date Smoking Tobacco: Every Day Cigarettes 1 15 Smokeless Tobacco: Never Alcohol Use Standard Drinks/Week Comments Yes 0 (1 standard drink = 0.6 oz pur e alcohol) SOCIAL [place] Depression Scale Answer Date Recorded Retired [place] Depression Score 8 07/25/2018 Retired EPD Scale: Thought of Harming Self Unrec ognized value 07/25/2018 PHQ-2 Answer Date Recorded Patient Health Questionnaire-2 Score 0 12/22/2024 Comments No Sex and Gender Information Value Date Recorded Sex Assigned at Not on file Legal Sex Female 1:42 PM EDT Gender Identity Not on file Sexual Orientation Not on file documented as of this encounter Plan of Treatment Not on file documented as of this encounter Visit Diagnoses Not on filedocumented in this encounter Care Teams Automotive Technician Instructor Relationship Specialty Start Date End Date Armando Haynes APRN [address] [place] [address] [place], [place] [id number] PCP - General Family Medicine 04/26/21 documented as of this encounter
--- OUTSIDE RECORDS SUMMARY | 2025-02-24 10:58 | XMS_ITS | Encounter Summary ---
[facility] [address] [place] [address] Care Team Providers Care Drug Enforcement Agent Name Role Phone Armando Min SOFTWARE DEVELOPER Primary Care Provider + Reason for Visit * Reason Onset Date Comments Advice Only 12/10/2024 Encounter Details Date Type Department Care Team (Late st Contact Info) Description 12/10/2024 Telephone [facility] [address] [address] Armando Min, SOFTWARE DEVELOPER 120 [facility] [address] [place] [address] Advice Only Social History Tobacco Use Types Packs/Day Years Used Date Smoking Tobacco: Every Day Cigarettes 1 15 Smokeless Tobacco: Never Alcohol Use Standard Drinks/Week Comments Yes 0 (1 standard drink = 0.6 oz pur e alcohol) SOCIAL [place] Depression Scale Answer Date Recorded Retired [place] Depression Score 8 07/25/2018 Retired EPD Scale: Thought of Harming Self Unrec ognized value 07/25/2018 PHQ-2 Answer Date Recorded Patient Health Questionnaire-2 Score 0 12/22/2024 Comments No Sex and Gender Information Value Date Recorded Sex Assigned at Not on file Legal Sex Female 1:42 PM EDT Gender Identity Not on file Sexual Orientation Not on file documented as of this encounter Functional Status documented as of this encounter Miscellaneous Notes * Telephone Encounter - Roya Bustillos, [facility] - 12/10/2024 12:50 PM EDT Attempted to call pt, no answer no vm. Ok for hub to relay that patient has to be seen for any medications as it has been over a year since she was last seen. * Telephone Encounter - Liza Clemens RegSched Rep - 12/10/2024 10:18 AM EDT Provider: TROY MIN Caller: Lalitha Onofre Relationship to Patient: Self Reason for Call: PATIENT'S UPCOMING APPOINTMENT WAS TO DISCUSS MEDICATION, AND SHE WOULD LIKE TO KNOW IF IT IS POSSIBLE FOR THOSE TO BE PRESCRIBED WITHOUT AN APPOINTMENT THE APPOINTMENT HAD TO BE DELAYED documented in this encounter Plan of Treatment Not on file documented as of this encounter Visit Diagnoses Not on filedocumented in this encounter Care Teams Drug Enforcement Agent Relationship Specialty Start Date End Date Armando Min APRN [address] [place] [address] PCP - General Family Medicine 04/26/21 documented as of this encounter
--- OUTSIDE RECORDS SUMMARY | 2025-02-24 10:58 | XMS_ITS | Encounter Summary ---
Author Organization [facility] Address [address] [place] [address] Care Team Providers Care Workers' Compensation Magistrate Name Role Phone Armando Haynes COMPUTER INSTRUCTOR Primary Care Provider + Encounter Details Date Type Department Care Team (Late st Contact Info) Description 12/23/2024 Results Follow-Up [facility] 120 [facility] [address] [place] [address] Armando Haynes APRN 120 [facility] [address] [place], [place] [id number] Social History Tobacco Use Types Packs/Day Years Used Date Smoking Tobacco: Every Day Cigarettes 1 15 Smokeless Tobacco: Never Alcohol Use Standard Drinks/Week Comments Yes 0 (1 standard drink = 0.6 oz pur e alcohol) SOCIAL [place] Depression Scale Answer Date Recorded Retired [place] Depression Score 8 07/25/2018 Retired EPD Scale: [...] on filedocumented in this encounter Care Teams Workers' Compensation Magistrate Relationship Specialty Start Date End Date Armando Haynes APRN [address] [place] [address] [address] [place] [address] PCP - General Family Medicine 04/26/21 documented as of this encounter
--- OUTSIDE RECORDS SUMMARY | 2025-02-24 10:58 | XMS_ITS | Encounter Summary ---
Author Organization [facility] Address [address] [place] [address] Care Team Providers Care Grocery Packer Name Role Phone Armando Haynes CALENDER WORKER HELPER Primary Care Provider + Encounter Details Date Type Department Care Team (Late st Contact Info) Description 12/23/2024 Results Follow-Up [facility] [address] [facility] [address] [place] [address] Armando Haynes APRN 120 [facility] [address] [place], [place] [id number] Social History Tobacco Use Types Packs/Day Years Used Date Smoking Tobacco: Every Day Cigarettes 1 15 Smokeless Tobacco: Never Alcohol Use Standard Drinks/Week Comments Yes 0 (1 standard drink = 0.6 oz pur e alcohol) SOCIAL [place] Depression Scale Answer Date Recorded Retired [place] Depression Score 8 07/25/2018 Retired EPD Scale: [...] on filedocumented in this encounter Care Teams Grocery Packer Relationship Specialty Start Date End Date Armando Haynes APRN [address] [place] [address] [address] [place] [address] PCP - General Family Medicine 04/26/21 documented as of this encounter
--- OUTSIDE RECORDS SUMMARY | 2025-02-24 10:58 | XMS_ITS | Encounter Summary ---
[facility] Address [address] [place] [address] Care Team Providers Care Flatware Maker Name Role Phone HaynesArmando curz Megan TROY Primary Care Provider + Encounter Details Date Type Department Care Team (Late st Contact Info) Description 01/26/2025 Prior Authorization [facility] [address] [place] [address] Roya Bustillos CMA Social History Tobacco Use Types Packs/Day Years Used Date Smoking Tobacco: Every Day Cigarettes 1 15 Smokeless Tobacco: Never Alcohol Use Standard Drinks/Week Comments Yes 0 (1 standard drink = 0.6 oz pur e alcohol) SOCIAL [place] Depression Scale Answer Date Recorded Retired [place] Depression Score 8 07/25/2018 Retired EPD Scale: Thought of Harming Self Unrec ognized value 07/25/2018 PHQ-2 Answer Date Recorded Patient Health Questionnaire-2 Score 0 12/22/2024 Comments No Sex and Gender Information Value Date Recorded Sex Assigned at Not on file Legal Sex Female 1:42 PM EDT Gender Identity Not on file Sexual Orientation Not on file documented as of this encounter Miscellaneous Notes * Telephone Encounter - Roya Bustillos CMA - 01/26/2025 10:27 AM EDT ZULY morris sent to plan per covermymeds. Awaiting determination. (Prabhakar: [id number]) documented in this encounter Plan of Treatment Not on file documented as of this encounter Visit Diagnoses Not on filedocumented in this encounter Care Teams Flatware Maker Relationship Specialty Start Date End Date Armando Haynes APRN [address] [place] [address] PCP - General Family Medicine 04/26/21 documented as of this encounter
--- OUTSIDE RECORDS SUMMARY | 2025-02-24 10:58 | XMS_ITS | Clinical Summary ---
Author Organization [facility] yste Address [address] [place] [address] Care Team Providers Care Senior Front End Engineer Name Role Phone Armando Haynes APRN Primary Care Provider + Allergies No known active allergies Medications ferrous sulfate 325 (65 FE) MG tabletIndication s:Other iron deficiency anemia Take 1 tablet by mouth 2 (Two) Times a Day With Meals. Take with orange juice or vitamin C 60 tablet 5 5 Active ARIPiprazole (Abilify) 15 MG tabletIndication s:Bipolar 1 disorder Take 1 tablet by mouth Daily. 90 tablet 3 5 Active famotidine (PEPCID) 20 MG tabletIndication s:Gastroesophage al reflux disease without esophagitis Take 1 tablet by mouth 2 (Two) Times a Day. 180 tablet 3 5 Active losartan (COZAAR) 25 MG tabletIndication s:Essential hypertension Take 1 tablet by mouth Daily. 30 tablet 1 5 Active Semaglutide-Weig ht Management (Wegovy) 0.25 MG/0.5ML solution auto-injectorInd ications:Class 1 obesity due to excess calories with serious comorbidity and body mass index (BMI) of 30.0 to 30.9 in adult Inject 0.5 mL under the skin into the appropriate area as directed Every 7 (Seven) Days. 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 Family history of genetic disease 03/31/2018 Previous delivery affecting 0 03/31/2018 Resolved Problems Problem Noted Date Diagnosed Date Resolved Date Term 07/24/2018 07/26/2018 Encounters Date Type Department Care Team Description 01/26/2025 Prior Authorization [facility] [address] [place] [id number] Roya Bustillos, BRISEIDA 01/22/2025 3:45 PM EDT Office Visit [facility] [address] [place] [address] Armando Haynes, TROY Essential hypertension (Primary Dx); Bipolar 1 disorder; Gastroesophageal reflux disease without esophagitis; Class 1 obesity due to excess calories with serious comorbidity and body mass index (BMI) of 30.0 to 30.9 in adult; Other iron deficiency anemia 01/22/2025 Travel 12/24/2024 Refill [facility] [address] [place] [address] Armando Haynes, TROY Bipolar 1 disorder; Gastroesophageal reflux disease without esophagitis; Essential hypertension 12/23/2024 Refill [facility] [address] [place] [address] Armando Haynes, TROY Other iron deficiency anemia 12/23/2024 Results Follow-Up [facility] [address] [place] [address] Armando Haynes APRN 12/23/2024 Results Follow-Up [facility] [address] [place] [address] Armando Haynes, TROY 12/22/2024 4:20 PM EDT Lab [facility] [address] [place] [address] Healthcare maintenance (Primary Dx) 12/22/2024 3:45 PM EDT Office Visit [facility] [address] [place] [address] Armando Haynes APRN Essential hypertension (Primary Dx); Bipolar 1 disorder; Gastroesophageal reflux disease without esophagitis 12/22/2024 Travel 12/10/2024 Telephone [facility] [address] [place] [address] Armando Haynes APRN Advice Only from Last 3 Months Family History Medical History Relation Name Comments Diabetes Brother Diabetes Father Hypertension Father Kidney disease Mother Leukemia Mother Relation Name Status Comments Brother Father Mother Social History Tobacco Use Types Packs/Day Years Used Date Smoking Tobacco: Every Day Cigarettes 1 15 Smokeless Tobacco: Never Tobacco Cessation:Ready to Q uit: No; Counseling Given: Yes Alcohol Use Standard Drinks/Week Comments Yes 0 (1 standard drink = 0.6 oz pur e alcohol) 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 Depression 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 Answer Date Recorded 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 Depression Score 8 07/25/2018 Retired EPD Scale: Thought of Harming Self Unrec ognized value 07/25/2018 PHQ-2 Answer Date Recorded Patient Health Questionnaire-2 Score 0 12/22/2024 Comments No Sex and Gender Information Value Date Recorded Sex Assigned at Not on file Legal Sex Female 1:42 PM EDT Gender Identity Not on file Sexual Orientation Not on file Last Filed Vital Signs Vital Sign Reading Time Taken Comments Blood Pressure 120/72 01/22/2025 3:38 PM EDT Pulse 77 01/22/2025 3:38 PM EDT Temperature 36.1 C (97 F) 01/22/2025 3:38 PM EDT Respiratory Rate 14 10/04/2021 3:53 PM EDT Oxygen Saturation 99% 12/22/2024 3:53 PM EDT Inhaled Oxygen Concentration - - Weight 76.9 kg (169 lb 9.6 oz) 01/22/2025 3:38 P M EDT Height 160 cm (5' 3 ) 01/22/2025 3:38 PM EDT Body Mass Index 30.04 01/22/2025 3:38 PM EDT Plan of Treatment Health Maintenance Due Date Last Done Comments Annual Gynecologic Pelvic an d Breast Exam 1987 TDAP/TD VACCINES (1 - Tdap) 2006 ANNUAL PHYSICAL 03/31/2018 COVID-19 Vaccine (1 - 2023-2 5 season) 2024 INFLUENZA VACCINE 04/14/2025 Pneumococcal Vaccine 0-49 (1 of 2 - PCV) 07/21/2025 Postponed from 05/14 (Patient Refused) PAP SMEAR 09/30/2026 10/01/2023 (Patient-Reported (Performed Externally)) HEPATITIS C SCREENING Completed 12/19/2017 Procedures Procedure Name Priority Date/Time Associated Diagnosis Comments CBC AND DIFFERENTIAL Routine 12/22/2024 4:19 PM EDT Essential hypertension IRON PROFILE Add-On 12/22/2024 4:19 PM EDT Anemia, unspecified type CBC WITH AUTO DIFFERENTIAL Routine 12/22/2024 4:19 PM EDT Essential hypertension COMPREHENSIVE METABOLIC PANEL Routine 12/22/2024 4:19 PM EDT Essential hypertension HEPATITIS C ANTIBODY Routine 12/19/2017 11:07 AM EDT 8 weeks gestation of care, subsequent , first trimester from Last 3 Months or Most Recently Relevant to Health Maintenance Results * (ABNORMAL) CBC Auto Differential (12/22/2024 4:19 PM EDT) WBC 8.17 3.40 - 10.80 10*3/mm3 12/22/2024 11:50 PM EDT [facility] RBC 4.18 3.77 - 5.28 10*6/mm3 12/22/2024 11:50 PM EDT [facility] Hemoglobin 10.5(L) 12.0 - 15.9 g/dL 12/22/2024 11:50 PM EDT [facility] Hematocrit 34.4 34.0 - 46.6 % 12/22/2024 11:50 PM EDT [facility] MCV 82.3 79.0 - 97.0 fL 12/22/2024 11:50 PM EDT [facility] MCH 25.1(L) 26.6 - 33.0 pg 12/22/2024 11:50 PM [facility] MCHC 30.5(L) 31.5 - 35.7 g/dL 12/22/2024 11:50 PM [facility] RDW 15.7(H) 12.3 - 15.4 % 12/22/2024 11:50 PM [facility] RDW-SD 46.6 37.0 - 54.0 fl 12/22/2024 11:50 PM [facility] MPV 9.9 6.0 - 12.0 fL 12/22/2024 11:50 PM [facility] Platelets 332 140 - 450 10*3/mm3 12/22/2024 11:50 PM [facility] Neutrophil % 55.4 42.7 - 76.0 % 12/22/2024 11:50 PM [facility] Lymphocyte % 32.3 19.6 - 45.3 % 12/22/2024 11:50 PM [facility] Monocyte % 9.9 5.0 - 12.0 % 12/22/2024 11:50 PM [facility] Eosinophil % 1.7 0.3 - 6.2 % 12/22/2024 11:50 PM [facility] Basophil % 0.5 0.0 - 1.5 % 12/22/2024 11:50 PM [facility] Immature Grans % 0.2 0.0 - 0.5 % 12/22/2024 11:50 PM [facility] Neutrophils, Absolute 4.52 1.70 - 7.00 10*3/mm3 12/22/2024 11:50 PM [facility] Lymphocytes, Absolute 2.64 0.70 - 3.10 10*3/mm3 12/22/2024 11:50 PM [facility] Monocytes, Absolute 0.81 0.10 - 0.90 10*3/mm3 12/22/2024 11:50 PM [facility] Eosinophils, Absolute 0.14 0.00 - 0.40 10*3/mm3 12/22/2024 11:50 PM EDT [facility] Basophils, Absolute 0.04 0.00 - 0.20 10*3/mm3 12/22/2024 11:50 PM EDT [facility] Immature Grans, Absolute 0.02 0.00 - 0.05 10*3/mm3 12/22/2024 11:50 PM EDT [facility] nRBC 0.0 0.0 - 0.2 /100 WBC 12/22/2024 11:50 PM EDT [facility] Blood Structure of right upper limb / Unknown Venipuncture / Unknown 12/22/2024 4:19 PM EDT 12/22/2024 4:19 PM EDT Armando Haynes APRN LAB BLOOD ORDERABLES Fin al Result [facility]
[address] [place] [address], * (ABNORMAL) Iron Profile w/o Ferritin (12/22/2024 4:19 PM EDT) Iron 16(L) 37 - 145 mcg/dL 12/23/2024 9:00 AM EDT [facility] Iron Saturation (TSAT) 3(L) 20 - 50 % 12/23/2024 9:00 AM EDT [facility] Transferrin 370(H) 200 - 360 mg/dL 12/23/2024 9:00 AM EDT [facility] TIBC 551(H) 298 - 536 mcg/dL 12/23/2024 9:00 AM EDT [facility] Blood Structure of right upper limb / Unknown Venipuncture / Unknown 12/22/2024 4:19 PM EDT 12/22/2024 4:19 PM EDT Armando Haynes APRN LAB BLOOD ORDERABLES Fin al Result [facility]
[address] [place] [address], * (ABNORMAL) Comprehensive Metabolic Panel (12/22/2024 4:19 PM EDT) Glucose 76 65 - 99 mg/dL 12/22/2024 11:28 PM EDT [facility] BUN 12.0 6.0 - 20.0 mg/dL 12/22/2024 11:28 PM EDT [facility] Creatinine 0.81 0.57 - 1.00 mg/dL 12/22/2024 11:28 PM EDT [facility] Sodium 138 136 - 145 mmol/L 12/22/2024 11:28 PM EDT [facility] Potassium 3.8 3.5 - 5.2 mmol/L 12/22/2024 11:28 PM EDT [facility] Chloride 107 98 - 107 mmol/L 12/22/2024 11:28 PM EDT [facility] CO2 21.0(L) 22.0 - 29.0 mmol/L 12/22/2024 11:28 PM EDT [facility] Calcium 9.2 8.6 - 10.5 mg/dL 12/22/2024 11:28 PM EDT [facility] Total Protein 7.0 6.0 - 8.5 g/dL 12/22/2024 11:28 PM EDT [facility] Albumin 3.9 3.5 - 5.2 g/dL 12/22/2024 11:28 PM EDT [facility] ALT (SGPT) 27 1 - 33 U/L 12/22/2024 11:28 PM EDT [facility] AST (SGOT) 31 1 - 32 U/L 12/22/2024 11:28 PM EDT [facility] Alkaline Phosphatase 90 39 - 117 U/L 12/22/2024 11:28 PM EDT [facility] Total Bilirubin 0.2 0.0 - 1.2 mg/dL 12/22/2024 11:28 PM EDT [facility] Globulin 3.1 gm/dL 12/22/2024 11:28 PM EDT [facility] A/G Ratio 1.3 g/dL 12/22/2024 11:28 PM EDT [facility] BUN/Creatinine Ratio 14.8 7.0 - 25.0 12/22/2024 11:28 PM EDT [facility] Anion Gap 10.0 5.0 - 15.0 mmol/L 12/22/2024 11:28 PM EDT [facility] eGFR 96.0 >60.0 mL/min/1.7 3 12/22/2024 11:28 PM EDT [facility] Blood Structure of right upper limb / Unknown Venipuncture / Unknown 12/22/2024 4:19 PM EDT 12/22/2024 4:19 PM EDT Narrative [facility] - 12/22/2024 11:28 PM EDT GFR Categories in Chronic Kidney Disease (CKD) GFR Category GFR (mL/min/1.73) Interpretation G1 90 or greater Normal or high (1) G2 60-89 Mild decrease (1) G3a 45-59 Mild to moderate decrease G3b 30-44 Moderate to severe decrease G4 15-29 Severe decrease G5 14 or less Kidney failure (1)In the absence of evidence of kidney disease, neither GFR category G1 or G2 fulfill the criteria for CKD. eGFR calculation 2020 CKD-EPI creatinine equation, which does not include race as a factor us Armando Haynes APRN LAB BLOOD ORDERABLES Fin al Result [facility]
[address] [place] [address], * Hepatitis C Antibody (12/19/2017 11:07 AM EDT) Hepatitis C Ab Non-Reacti ve Non-Reacti ve 12/19/2017 1:01 PM EDT [facility] Blood Venipuncture / Unknown 12/19/2017 11:07 AM EDT 12/19/2017 11:07 AM EDT [facility] LAB BLOOD ORDERABLES nal Result [facility]
[address] [place] [address], from Last 3 Months or Most Recently Relevant to Health Maintenance Insurance [employer] [place] [address] Member Subscriber Plan / Payer (Ef fective 2024-Present) Name:Lalitha Onofre Relation to Subscriber:Self Name:Lalitha Onofre Payer ID:[id number] (NAIC) Type:Not on file Address: [address] [place] [phone] Advance Directives * CPR (Attempt to Resuscitate) (Latest Code Status on File) Date Activated Date Inactivated Comments 07/24/2018 3:07 PM 07/26/2018 4:35 PM Question Answer Comments Code Status (Patient has no pulse and is not breathing): CPR (Attempt to Resuscitate) Medical Interventions (Patie nt has pulse or is breathing): Full * CPR (Attempt to Resuscitate) Date Activated Date Inactivated Comments 07/24/2018 11:25 AM 07/24/2018 3:07 PM Question Answer Comments Code Status (Patient has no pulse and is not breathing): CPR (Attempt to Resuscitate) Medical Interventions (Patie nt has pulse or is breathing): Full Care Teams Senior Front End Engineer Relationship Specialty Start Date End Date Armando Haynes APRN [address] [facility] [address] [place] [address] PCP - General Family Medicine 04/26/21
--- OUTSIDE RECORDS SUMMARY | 2025-02-24 10:58 | XMS_ITS | Patient Health Record ---
Author Organization [facility] Address [address] [facility] [address] [place] [address] Care Team Providers Care Hydroelectric Station Operator Name Role Phone Aracelis Adan Unavailable [phone] SaumyaCynthia wu Unavailable [phone] Sofiya Fox Unavailable [phone] Allergies No Known Allergies Results Component Value Reference Range Flag Notes Fransisca/Bacterial Vaginosis, ISABEL (Aptima) Reviewed date:04/10/2024 08:36:11 PM Interpretation:BV, Yeast Performing Lab: Notes/Report: [facility] Testing performed at: [=G] [address], [address], , Retort Furnace Helper: Krysta Farrell MD Test(s) 032547- Atopobium vaginae; 352318- BVAB 2; 728677- Megasphaera 1 was developed and its performance characteristics determined by [facility]. It has not been cleared or approved by the Food and Drug Administration. Test(s) 925367-Vglcwtn albicans, ISABEL; 938454- Fransisca glabrata, ISABEL Atopobium vaginae High - 2 A BVAB 2 High - 2 A Megasphaera 1 High - 2 A Calculate total score by adding the 3 individual bacterial diagnosis. vaginosis (BV) marker scores together. Total score is Total score 0-1: Indicates the absence of BV. interpreted as follows: data should be evaluated to establish a Total score 2: Indeterminate for BV. Additional clinical Total score 3-6: Indicates the presence of BV. Fransisca albicans, ISABEL Negative Negative N Fransisca glabrata, ISABEL Negative Negative N Wet [place] - In House Reviewed date:04/08/2024 11:13:14 AM Interpretation:Abnormal Performing Lab: Notes/Report: Reason For Referral No Information Medications Medication SIG (Take, Route, Frequency, Duration) Notes Start Date End Date Status metroNIDAZOLE 500 MG Tablet 1 tablet Orally two times a day; Duration: 7 days 07/26/2023 Not-Taking/PRN metroNIDAZOLE 500 MG Tablet 1 tablet Orally two times a day; Duration: 10 day(s) 11/07/2021 Not-Taking/P RN Diflucan 150 MG Tablet 1 tablet Orally T shellie one tablet, may repeat dose in 3 days; Duration: 4 days 04/08/2024 Active Doxycycline Hyclate 100 MG Capsule 1 capsule Orally twice a day; Duration: 7 days 07/29/2023 Not-Taking/PRN metroNIDAZOLE 500 MG Tablet 1 tablet Orally twice a day; Duration: 7 days 04/08/2024 Active Acyclovir 400 MG Tablet 1 tablet Orally Twice a day; Duration: 90 days 07/24/2023 Active Social History Tobacco Use: Social History Observation Description Date Details (start date - stop date) Current Smoker NA - NA Social History Drugs/Alcohol: Social Info Question Answer Notes Drugs Have you used drugs other than those for medical reasons in the past 12 months? No Alcohol Screen Did you have a drink containing alcohol in the past year? Yes How often did you have a drink containing alcohol in the past year? Monthly or less (1 point) Points 1 Interpretation Negative Tobacco Use: Social Info Question Answer Notes Tobacco Use/Smoking Are you a current every day smo ker Problems Problem Type SNOMED Code ICD Code Onset Dates Problem Status W/U Status Risk Notes Problem Genital herpes simplex (07315126) Genital herpes simplex, unspecified site (A60.00) Active confirmed Problem Genital herpes simplex (67776937) Genital herpes (A60.00) 018 Active confirmed Genital herpes Problem Noninflammatory disorder of the vagina (39453587) Bloody vaginal discharge (N89.8) 021 Active confirmed Vaginal irritation Problem Noninflammatory disorder of the vagina (56226722) Bloody vaginal discharge (N89.8) 021 Active confirmed Vaginal odor Problem Sexually transmitted infectious disease (9219243) Encntr screen for infections w sexl mode of transmiss (Z11.3) 021 Active confirmed Encounter for screening for infections with a predominantly sexual mode of transmission Problem Pelvic and perineal pain (335757723) Abdominal pain, suprapubic (R10.2) 020 Active confirmed Acute pelvic pain Vital Signs Heart Rate 65 /min 04/08/2024 Oximetry 99 % 04/08/2024 Blood pressure diastolic 84 mm Hg 04/08/2024 Height 63 in 04/08/2024 Blood pressure systolic 109 mm Hg 04/08/2024 Weight 170.6 lbs 04/08/2024 BMI 30.22 kg/m2 04/08/2024 Encounters Encounter Location Date Provider Diagnosis [facility] [address] [facility] [address] [place] [address] 04/08/2024 Sofiya Fox Vaginal irritation N89.8 ; Acute vaginitis N76.0 ; Vaginal odor N89.8 ; Yeast infection B37.9 and Other specified bacterial agents as the cause of diseases classified elsewhere B96.89 Assessments Encounter Date Diagnosis (ICD Code) Assessment Notes Treatment Notes Treatment Clinical Notes Section Notes 04/08/2024 Vaginal irritation (ICD-10 - N89.8) 04/08/2024 Acute vaginitis (ICD-10 - N76.0) - Culture pending - Discussed avoidance of alcohol while taking medicaiton 04/08/2024 Vaginal odor (ICD-10 - N89.8) 04/08/2024 Yeast infection (ICD-10 - B37.9) - Culture pending 04/08/2024 Other specified bacterial agents as the cause of diseases classified elsewhere (ICD-10 - B96.89) Plan Of Treatment No Information Insurance Providers Payer Name Payer Address Payer Phone Subscriber Number Group Number Insured Name Patient Relationship to Insured Coverage Start Date Coverage End Date Human Medicaid [address] [address] [place], [place] [id number] Lalitha Onofre Self - patient is the insured 2 Medical (General) History Medical History History ICD Code Abnormal pap HPV anxiety bacterial vaginosis depression Urinary tract infections yeast infections HSV Surgical History Surgery Date(Month/Year) Primary section 08-19-2014 section, Bilateral tubal ligati on 07-24-2018 Hospitalization History Reason Date(Month/Year) L&D 2018 L&D 2014
== END 2025-02-23 23:59 | disposition home or self-care (01) ==
LOC: LAB.DROPOF 02-24 10:52
PROVIDERS: PCP Nurse Practitioner Family; Visit Provider Nurse Practitioner Family
DX: N39.0 Urinary tract infection, site not specified (principal)
CPT/HCPCS: 87086; 87088; 87186